=== PATIENT | female | born 1990 | race Caucasian/White ===

== ENCOUNTER → 2018-11-06 | Outpatient (REF) | payer OTHER ==
[2018-11-06 12:48] LABS: BASO % 0.6 % (0.0-1.0); EOS # 0.1 10^3/uL (0.0-0.50); HEMATOCRIT 38.6 % (36.0-47.0); HEMOGLOBIN 12.4 g/dl (12.0-15.5); IMMATURE GRANULOCYTE % 0.1 % (0-3.0); LYMPH # 2.6 10^3/uL (1.5-6.5); LYMPH % 36.6 % (24.0-44.0); MEAN CORPUSCULAR HGB CONC 32.1 g/dl (32.0-36.5); MEAN CORPUSCULAR VOLUME 87.1 fl (80.0-96.0); MONO # 0.6 10^3/uL (0.0-0.8); MONO % 8.4 % (0.0-5.0); NEUTROPHILS # 3.8 10^3/uL (1.8-7.7); NEUTROPHILS % 53.3 % (36.0-66.0); PLATELET COUNT, AUTOMATED 377 10^3/uL (150-450); RED BLOOD COUNT 4.43 10^6/uL (4.00-5.40); RED CELL DISTRIBUTION WIDTH 13.9 % (11.5-14.5); WHITE BLOOD COUNT 7.2 10^3/uL (4.0-10.0)
[2018-11-06 13:20] LABS: ALBUMIN/GLOBULIN RATIO 0.77 (1.00-1.93); ALKALINE PHOSPHATASE 86 U/L (45-117); ALT/SGPT 16 U/L (12-78); ANION GAP 8 MEQ/L (8-16); AST/SGOT 16 U/L (7-37); BILIRUBIN,TOTAL 0.2 MG/DL (0.2-1.0); BLOOD UREA NITROGEN 9 MG/DL (7-18); CALCIUM LEVEL 8.5 MG/DL (8.5-10.1); CARBON DIOXIDE LEVEL 24 MEQ/L (21-32); CHLORIDE LEVEL 108 MEQ/L (98-107); CREATININE FOR GFR 0.71 MG/DL (0.55-1.30); GLOMERULAR FILTRATION RATE > 60.0 (>60); GLUCOSE, FASTING 79 MG/DL (70-100); POTASSIUM SERUM 4.7 MEQ/L (3.5-5.1); RHEUMATOID FACTOR QUANT < 10.0 IU/ML (<15.0); SODIUM LEVEL 140 MEQ/L (136-145); TOTAL 25(OH) VITAMIN D 36.8 NG/ML (30.0-100.0); TOTAL PROTEIN 6.9 GM/DL (6.4-8.2)
[2018-11-06 13:24] LABS: ERYTHROCYTE SEDIMENTATION RATE 25 mm/hr (0-20)
[2018-11-07 10:13] LABS: ANTINUCLEAR ANTIBODIES DIRECT Negative (Negative)
== END ==
LOC: M LABNEURO 08:32
DX: R51 Headache (principal)
CPT/HCPCS: 84443

== ENCOUNTER 2021-01-25 01:44 | Emergency (ER) | payer OTHER ==
[~2021-01-25] VITALS: Ht 154.9 cm; Wt 90.9 kg
[2021-01-25] MEDS ORDERED: TRAZ-252 (01:54)
[2021-01-25] MEDS ORDERED: SULF1TAB93 (01:54)
[2021-01-25] MEDS ORDERED: SUMA25TA3 (01:54)
[2021-01-25] MEDS ORDERED: ZONI100C17 (01:54)
[2021-01-25] MEDS ORDERED: PROP10TA56 (01:54)
[2021-01-25] MEDS ORDERED: SERT50TA29 (01:54)
[2021-01-25] MEDS ORDERED: NORG1TAB33 (01:54)
[2021-01-25 02:25] LABS: BASO # 0.1 10^3/uL (0.0-0.2); BASO % 0.4 % (0.0-1.0); EOS # 0.1 10^3/uL (0.0-0.5); EOS % 0.6 % (0.0-3.0); HEMATOCRIT 39.6 % (36.0-47.0); HEMOGLOBIN 12.4 g/dl (12.0-15.5); LYMPH # 3.5 10^3/uL (1.5-5.0); LYMPH % 24.4 % (24.0-44.0); MEAN CORPUSCULAR HEMOGLOBIN 27.9 pg (27.0-33.0); MEAN CORPUSCULAR HGB CONC 31.3 g/dl (32.0-36.5); MONO # 1.2 10^3/uL (0.0-0.8); NEUTROPHILS # 9.5 10^3/uL (1.5-8.5); NEUTROPHILS % 66.3 % (36.0-66.0); PLATELET COUNT, AUTOMATED 367 10^3/uL (150-450); RED BLOOD COUNT 4.45 10^6/uL (4.00-5.40); WHITE BLOOD COUNT 14.3 10^3/uL (4.0-10.0)
[2021-01-25] MEDS ORDERED: NS 1,000 ML IV ONE (02:40)
[2021-01-25] MEDS ORDERED: MORPHINE 2 MG/ML 1ML VIAL (J2270) IV PRN (02:40)
[2021-01-25] MEDS ORDERED: ONDANSETRON 4MG/2ML VIAL IV ONE (02:40)
[2021-01-25 02:50] LABS: INR 0.97; PROTHROMBIN TIME 13.1 SECONDS (12.5-14.3)
[2021-01-25 02:51] LABS: PARTIAL THROMBOPLASTIN TIME 28.9 SECONDS (24.2-38.5)
[2021-01-25 03:00] LABS: ALBUMIN 3.2 GM/DL (3.2-5.2); ALT/SGPT 14 U/L (12-78); BILIRUBIN,DIRECT < 0.1 MG/DL (0.0-0.2); BILIRUBIN,TOTAL 0.1 MG/DL (0.2-1.0); BLOOD UREA NITROGEN 16 MG/DL (7-18); CALCIUM LEVEL 9.4 MG/DL (8.5-10.1); CARBON DIOXIDE LEVEL 25 MEQ/L (21-32); CHLORIDE LEVEL 109 MEQ/L (98-107); CREATININE FOR GFR 1.04 MG/DL (0.55-1.30); GLOMERULAR FILTRATION RATE > 60.0 (>60); GLUCOSE, FASTING 105 MG/DL (70-100); LIPASE 103 U/L (73-393); SODIUM LEVEL 140 MEQ/L (136-145); TOTAL PROTEIN 6.9 GM/DL (6.4-8.2)
[2021-01-25] MEDS ORDERED: ISOVUE-370 76% 100ML VIAL As Ordered ONE (03:03)
[2021-01-25 03:27] LABS: RSV AMPLIFICATION NEGATIVE (NEGATIVE)
--- NOTE | 2021-01-25 04:05 | REPVR ---
PROCEDURE INFORMATION: Exam: CT Abdomen And Pelvis With Contrast Exam date and time: 01/25/2021 2:39 AM Age: 30 years old Clinical indication: Abdominal pain; Localized; Right lower quadrant (rlq); Additional info: Right lower quadrant pain TECHNIQUE: Imaging protocol: Computed tomography of the abdomen and pelvis with contrast. Radiation optimization: All CT scans at this facility use at least one of these dose optimization techniques: automated exposure control; mA and/or kV adjustment per patient size (includes targeted exams where dose is matched to clinical indication); or iterative reconstruction. Contrast material: ISO; Contrast volume: 100 ml; Contrast route: INTRAVENOUS (IV); COMPARISON: No relevant prior studies available. FINDINGS: Liver: Hepatomegaly and steatosis. Gallbladder and bile ducts: Normal. No calcified stones. No ductal dilation. Pancreas: Normal. No ductal dilation. Spleen: Normal. No splenomegaly. Adrenal glands: Normal. No mass. Kidneys and ureters: Mild right hydroureteronephrosis to the level a 3-4 mm calculus in the distal right ureter. Simple right renal cyst. Nonobstructive left renal calculus. Stomach and bowel: Scattered colonic diverticula. No evidence of acute diverticulitis. Appendix: No evidence of appendicitis. Intraperitoneal space: Epiploic appendagitis adjacent to the proximal sigmoid colon in the left lower quadrant. Vasculature: Unremarkable. No abdominal aortic aneurysm. Lymph nodes: Unremarkable. No enlarged lymph nodes. Urinary bladder: Unremarkable as visualized. Reproductive: Involuting left ovarian corpus luteal cyst. Bones/joints: Unremarkable. No acute fracture. Soft tissues: Unremarkable. IMPRESSION: 1. Mild right hydroureteronephrosis to the level a 3-4 mm calculus in the distal right ureter. 2. Epiploic appendagitis adjacent to the proximal sigmoid colon in the left lower quadrant. 3. Involuting left ovarian corpus luteal cyst. 4. Normal appendix. COMMENTS: Consistent with the [employer]'s Incidental Findings Committee white paper (J Am Emily Radiol 2018): Any incidental renal lesion less than 1 cm or classified as too small to characterize, or any incidental cystic renal lesion characterized as simple-appearing, is likely benign. No follow-up imaging is recommended for these lesions per consensus recommendations based on imaging criteria. Electronically signed by: Leon Frias On 01/25/2021 04:04:59 AM
[2021-01-25] MEDS ORDERED: TAMSULOSIN 0.4 MG CAP PO ONE (04:55)
[2021-01-25] MEDS ORDERED: KETOROLAC 30 MG/ML 1ML VIAL IV ONE (04:55)
[2021-01-25] MEDS ORDERED: FLOM0.4C39 PO (06:05)
[2021-01-25] MEDS ORDERED: ONDA4TAB6 PO (06:05)
[2021-01-25] MEDS ORDERED: PERC5TAB12 PO (06:05)
[2021-01-25] MEDS ORDERED: KETO10TAB PO (06:05)
[2021-01-25 06:22] VITALS: BP 131/60
== END 2021-01-25 06:26 | disposition home or self-care (01) ==
LOC: M ED 01:44
DX: K38.8 Other specified diseases of appendix (principal); N23 Unspecified renal colic; F41.9 Anxiety disorder, unspecified; Z79.3 Long term (current) use of hormonal contraceptives; Z79.899 Other long term (current) drug therapy
CPT/HCPCS: 74177; 80048; 80076; 81001; 83690; 84702; 85025; 85610; 85730; 86850; 86900; 86901; 87086; 87631; 96361; 96374; 96375; 99284; J1885; J2270; J2405; Q9967

== ENCOUNTER → 2021-02-17 | Outpatient (REF) | payer OTHER ==
[~2021-02-17] MED LIST: FLOM0.4C39 PO; KETO10TAB PO; NORG1TAB33; ONDA4TAB6 PO; PERC5TAB12 PO; PROP10TA56; SERT50TA29; SULF1TAB93; SUMA25TA3; TRAZ-252; ZONI100C17
[2021-02-17 13:34] LABS: APPEARANCE, URINE HAZY (CLEAR); BACTERIA, URINE AUTO NEGATIVE (NEGATIVE); BILIRUBIN, URINE AUTO NEGATIVE (NEGATIVE); BLOOD, URINE BLOOD NEGATIVE (NEGATIVE); COLOR, URINE YELLOW (YELLOW); GLUCOSE, URINE (UA) AUTO NEGATIVE (NEGATIVE); KETONE, URINE AUTO NEGATIVE (NEGATIVE); LEUKOCYTE ESTERASE, URINE AUTO 2+ (NEGATIVE); MUCUS, URINE SMALL (NEGATIVE); NITRITE, URINE AUTO NEGATIVE (NEGATIVE); PROTEIN, URINE AUTO NEGATIVE (NEGATIVE); RBC, URINE AUTO 1 /HPF (0-3); SPECIFIC GRAVITY URINE AUTO 1.017 (1.002-1.035); SQUAMOUS EPITHELIAL CELL UR AU 5 /HPF (0-6); UROBILINOGEN, URINE AUTO 0.2 mg/dL (0.0-2.0); WBC, URINE AUTO 3 /HPF (0-3)
== END ==
LOC: M SMT 13:10
PROVIDERS: ATTEND Nurse Practitioner Family
DX: N20.0 Calculus of kidney (principal)

== ENCOUNTER → 2021-06-12 | Outpatient (CLI) | payer OTHER ==
[~2021-06-12] MED LIST changes: +BACTDSTA; -SULF1TAB93
--- NOTE | 2021-06-12 16:33 | REP ---
INDICATION: RIGHT WRIST PAIN COMPARISON: None. TECHNIQUE: Four views right wrist. FINDINGS: There is no evidence of acute fracture, dislocation, or intrinsic bone disease.The ulna is 3 mm shorter than the radius indicating ulnar minus variance. The joint spaces are unremarkable. IMPRESSION: No fracture or dislocation. Ulnar minus variance. <Electronically signed by Lorenzo Nice > 06/12/21 [id number]
== END ==
LOC: M WUC 14:17
PROVIDERS: ATTEND Family Medicine
DX: M25.531 Pain in right wrist (principal)

== ENCOUNTER → 2022-12-24 | Outpatient (REF) | payer OTHER ==
[~2022-12-24] MED LIST changes: -ZONI100C17; +ZONI100C67
== END ==
LOC: M SFHCWAGY 12:56
PROVIDERS: ATTEND Specialist
DX: Z12.4 Encounter for screening for malignant neoplasm of cervix (principal)

== ENCOUNTER → 2023-05-29 | Outpatient (REF) | payer OTHER ==
[2023-05-29 12:06] LABS: BASO % 0.3 % (0.0-1.0); EOS # 0.1 10^3/uL (0.0-0.5); EOS % 0.9 % (0.0-3.0); HEMATOCRIT 37.7 % (36.0-47.0); HEMOGLOBIN 11.7 g/dl (12.0-15.5); LYMPH # 2.7 10^3/uL (1.5-5.0); LYMPH % 30.4 % (24.0-44.0); MEAN CORPUSCULAR HEMOGLOBIN 26.7 pg (27.0-33.0); MEAN CORPUSCULAR VOLUME 86.1 fl (80.0-96.0); MONO # 0.6 10^3/uL (0.0-0.8); MONO % 7.1 % (2.0-8.0); NEUTROPHILS # 5.3 10^3/uL (1.5-8.5); PLATELET COUNT, AUTOMATED 402 10^3/uL (150-450); RED BLOOD COUNT 4.38 10^6/uL (4.00-5.40); WHITE BLOOD COUNT 8.8 10^3/uL (4.0-10.0)
[2023-05-29 12:45] LABS: ALBUMIN 3.6 G/DL (3.2-5.2); ALKALINE PHOSPHATASE 122 U/L (46-116); ALT/SGPT 13 U/L (7.0-40); AST/SGOT 9 U/L (<34); BILIRUBIN,TOTAL 0.3 MG/DL (0.3-1.2); BLOOD UREA NITROGEN 11 MG/DL (9-23); CALCIUM LEVEL 9.3 MG/DL (8.5-10.1); CARBON DIOXIDE LEVEL 24 MMOL/L (20-31); CHLORIDE LEVEL 108 MMOL/L (98-107); CHOLESTEROL LEVEL 170 MG/DL (<200); CHOLESTEROL RISK RATIO 3.41 (<5); CREATININE FOR GFR 0.71 MG/DL (0.55-1.30); GLOMERULAR FILTRATION RATE > 60.0 (>60); GLUCOSE, FASTING 85 MG/DL (60-100); HDL CHOLESTEROL 49.8 MG/DL (>40); LDL CHOLESTEROL 90.6 MG/DL (<100); NON-HDL-C 120.2 MG/DL; POTASSIUM SERUM 4.3 MMOL/L (3.5-5.1); SODIUM LEVEL 139 MMOL/L (136-145); TOTAL PROTEIN 6.7 G/DL (5.7-8.2); TRIGLYCERIDES LEVEL 148 MG/DL (<150)
[2023-05-29 12:48] LABS: THYROID STIMULATING HORMONE 2.762 uIU/ML (0.55-4.78)
[2023-05-29 13:06] LABS: HEMOGLOBIN A1c 5.7 % (4.0-6.0)
== END ==
LOC: M LAB REF 11:34
PROVIDERS: ATTEND Family Medicine
DX: R53.83 Other fatigue (principal); Z79.899 Other long term (current) drug therapy

== ENCOUNTER 2024-04-28 09:44 | Day surgery (SDC) | payer OTHER ==
[~2024-04-28] VITALS: Ht 154.9 cm; Wt 98.1 kg
[~2024-04-28 09:44] MED LIST changes: +BUPR-71 PO; +EMGA120I SC; +ONDA-282 PO; -ONDA4TAB6 PO; +SETL1TAB PO; +SUMA6PEN3 SC; +ZOLO50TA PO; -ZONI100C67; +ZONI100C67 PO
[2024-04-28 10:21] LABS: HEMOGLOBIN 11.4 g/dl (12.0-15.5); MEAN CORPUSCULAR HEMOGLOBIN 27.5 pg (27.0-33.0); MEAN CORPUSCULAR HGB CONC 31.7 g/dl (32.0-36.5); MEAN CORPUSCULAR VOLUME 86.7 fl (80.0-96.0); PLATELET COUNT, AUTOMATED 421 10^3/uL (150-450); RED BLOOD COUNT 4.15 10^6/uL (4.00-5.40)
[2024-04-28] MEDS ORDERED: MIDAZOLAM INJ 2MG/2ML VIAL As Ordered ONE (10:31)
[2024-04-28] MEDS ORDERED: LIDOCAINE 2% 100MG/5ML SDV (FOR ANES.) As Ordered ONE (10:31)
[2024-04-28] MEDS ORDERED: fentaNYL 100 MCG/2 ML INJECTION As Ordered ONE (10:31)
[2024-04-28] MEDS ORDERED: propofoL 200 MG/20 ML VIAL As Ordered ONE (10:31)
[2024-04-28] MEDS: LR 1,000 ML IV SCH (10:39)
[2024-04-28] MEDS ORDERED: LEVONORGESTREL 52MG (MIRENA) IUD As Ordered ONE (10:39)
[2024-04-28] MEDS ORDERED: ONDANSETRON 4MG 2ML VIAL As Ordered ONE (11:08)
[2024-04-28] MEDS ORDERED: KETOROLAC 60MG 2ML VIAL As Ordered ONE (11:21)
[2024-04-28] MEDS ORDERED: fentaNYL 100 MCG/2 ML INJECTION IV PRN (11:35)
[2024-04-28] MEDS ORDERED: MORPHINE 2 MG/ML 1ML VIAL IV PRN (11:35)
[2024-04-28] MEDS ORDERED: oxyCODONE 5MG TAB PO PRN (11:35)
[2024-04-28] MEDS ORDERED: ONDANSETRON 4MG 2ML VIAL IV PRN (11:35)
[2024-04-28 12:20] VITALS: BP 160/90; TEMP 98.5; O2SAT 98
[2024-04-28] MEDS ORDERED: ACETAMINOPHEN 500 MG TAB PO PRN (13:05)
== END 2024-04-28 12:58 | disposition home or self-care (01) ==
LOC: M SDC 09:44
PROVIDERS: ATTEND Specialist
DX: Z30.430 Encounter for insertion of intrauterine contraceptive device (principal); N93.9 Abnormal uterine and vaginal bleeding, unspecified; Z79.899 Other long term (current) drug therapy
CPT/HCPCS: 36415; 58300; 81025; 85027; 88305; J1100; J1885; J2250; J2405; J3010; J7298

== ENCOUNTER → 2025-02-22 | Outpatient (REF) | payer OTHER ==
[~2025-02-22] MED LIST changes: -FLOM0.4C39 PO; -SUMA6PEN3 SC; +SUMA6PEN5 SC; +TAMS-18 PO
[2025-02-24 14:03] LABS: HPV APTIMA Not Detected (Not Detected)
== END ==
LOC: M SFHCWAGY 10:09
PROVIDERS: ATTEND Specialist
DX: Z12.4 Encounter for screening for malignant neoplasm of cervix (principal)